=== PATIENT | female | born 1930 | race Native Hawaiian/Other Pacific Islander ===

== ENCOUNTER 2016-09-02 09:24 | Inpatient (IN) | payer OTHER ==
[~2016-09-02 09:24] MED LIST: ALUMSUS6 PO; ASCO500T18 PO; CEPH500C20 PO; DOCU100C10 PO; ENOX40IN SC; GRALISE600 MG PO; MEGESTROL AC40 MG PO; MELOXICAM7.5 MG PO; METO25TA4 PO; MULTIVITAMI1 PO; OXYB5TAB56 PO; OXYC5TAB53 PO; POTA20TA4 PO; PRED20TA27 PO; ROBITUSSIN15 MG/5 ML PO; TRIA75TA61 PO; TYLENOL325 MG PO; ZINC220 MG PO
== END 2016-10-03 08:00 | disposition still patient (30) ==
LOC: PAVB 09:24
PROVIDERS: ADMIT Internal Medicine
DX: Z51.89 Encounter for other specified aftercare (principal)

== ENCOUNTER 2016-10-03 09:00 | Inpatient (IN) | payer OTHER | END 2016-11-03 10:14 | disposition still patient (30) | LOC: PAVB 09:00 | PROVIDERS: ADMIT Internal Medicine | DX: Z51.89 Encounter for other specified aftercare (principal) ==

== ENCOUNTER 2016-11-03 10:35 | Inpatient (IN) | payer OTHER | END 2016-12-01 09:39 | disposition still patient (30) | LOC: PAVB 10:35 | PROVIDERS: ADMIT Internal Medicine | DX: Z51.89 Encounter for other specified aftercare (principal) ==

== ENCOUNTER 2016-11-04 08:44 | Outpatient (CLI) | payer OTHER | END 2016-11-04 22:03 | disposition home or self-care (01) | LOC: US 08:44 | DX: G89.4 Chronic pain syndrome (principal); C56.9 Malignant neoplasm of unspecified ovary ==

== ENCOUNTER 2016-11-05 06:42 | Outpatient (CLI) | payer OTHER ==
[2016-11-05 07:01] LABS: POTASSIUM 4.2 mmol/L (3.6-5.2)
== END 2016-11-05 07:42 | disposition home or self-care (01) ==
LOC: LAB 06:42
PROVIDERS: Internal Medicine
DX: R82.99 Other abnormal findings in urine (principal)
CPT/HCPCS: 36415; 80048

== ENCOUNTER 2016-11-09 07:20 | Outpatient (CLI) | payer OTHER | END 2016-11-09 20:09 | disposition home or self-care (01) | LOC: CT 07:20 | DX: N28.1 Cyst of kidney, acquired (principal) ==

== ENCOUNTER 2016-11-10 15:43 | Outpatient (CLI) | payer OTHER | END 2016-11-10 19:12 | disposition home or self-care (01) | LOC: LAB 15:43 | DX: R82.99 Other abnormal findings in urine (principal) | CPT/HCPCS: 87070; 87077; 87086; 87088; 87186 ==

== ENCOUNTER 2016-12-01 10:24 | Inpatient (IN) | payer OTHER | END 2017-01-01 08:06 | disposition still patient (30) | LOC: PAVB 10:24 | PROVIDERS: ADMIT Internal Medicine | DX: Z51.89 Encounter for other specified aftercare (principal) ==

== ENCOUNTER 2017-01-01 09:21 | Inpatient (IN) | payer OTHER | END 2017-01-31 09:09 | disposition still patient (30) | LOC: PAVB 09:21 | PROVIDERS: ADMIT Internal Medicine | DX: Z51.89 Encounter for other specified aftercare (principal) ==

== ENCOUNTER 2017-01-03 22:07 | Outpatient (CLI) | payer OTHER | END 2017-01-03 23:07 | disposition home or self-care (01) | LOC: LAB 22:07 | DX: N39.0 Urinary tract infection, site not specified (principal) | CPT/HCPCS: 81000; 87077; 87086; 87088; 87186 ==

== ENCOUNTER 2017-01-18 04:56 | Outpatient (CLI) | payer OTHER | END 2017-01-18 19:09 | disposition home or self-care (01) | LOC: LAB 04:56 | DX: N39.0 Urinary tract infection, site not specified (principal); Z16.24 Resistance to multiple antibiotics | CPT/HCPCS: 81000; 87077; 87081; 87086; 87088; 87186 ==

== ENCOUNTER 2017-01-31 09:47 | Inpatient (IN) | payer OTHER | END 2017-03-03 09:31 | disposition still patient (30) | LOC: PAVB 09:47 | PROVIDERS: ADMIT Internal Medicine | DX: Z51.89 Encounter for other specified aftercare (principal) ==

== ENCOUNTER 2017-02-02 09:19 | Outpatient (CLI) | payer OTHER ==
[2017-02-02 10:28] LABS: PLATELET COUNT 182 K/uL (152-353)
[2017-02-02 10:39] LABS: POTASSIUM 4.7 mmol/L (3.6-5.2)
== END 2017-02-02 19:11 | disposition home or self-care (01) ==
LOC: LAB 09:19
PROVIDERS: Internal Medicine
DX: I10 Essential (primary) hypertension (principal); I48.1 Persistent atrial fibrillation
CPT/HCPCS: 36415; 80053; 83735; 85027

== ENCOUNTER 2017-03-03 09:53 | Inpatient (IN) | payer OTHER | END 2017-04-02 15:20 | disposition still patient (30) | LOC: PAVB 09:53 | PROVIDERS: ADMIT Internal Medicine | DX: Z51.89 Encounter for other specified aftercare (principal) ==

== ENCOUNTER 2017-03-12 10:59 | Outpatient (CLI) | payer OTHER | END 2017-03-12 19:01 | disposition home or self-care (01) | LOC: LAB 10:59 | DX: N39.0 Urinary tract infection, site not specified (principal) | CPT/HCPCS: 81000; 87077; 87086; 87088; 87186 ==

== ENCOUNTER 2017-03-31 23:04 | Outpatient (CLI) | payer OTHER | END 2017-03-31 23:59 | disposition home or self-care (01) | LOC: LAB 23:04 | DX: R41.82 Altered mental status, unspecified (principal) | CPT/HCPCS: 81000; 87077; 87086; 87088; 87186 ==

== ENCOUNTER 2017-04-02 15:35 | Inpatient (IN) | payer OTHER | END 2017-05-03 09:42 | disposition still patient (30) | LOC: PAVB 15:35 | PROVIDERS: ADMIT Internal Medicine | DX: Z51.89 Encounter for other specified aftercare (principal) ==

== ENCOUNTER 2017-05-03 10:11 | Inpatient (IN) | payer OTHER | END 2017-06-03 08:40 | disposition still patient (30) | LOC: PAVB 10:11 | PROVIDERS: ADMIT Internal Medicine | DX: Z51.89 Encounter for other specified aftercare (principal) ==

== ENCOUNTER 2017-06-03 09:04 | Inpatient (IN) | payer OTHER | END 2017-07-03 10:33 | disposition still patient (30) | LOC: PAVB 09:04 | PROVIDERS: ADMIT Internal Medicine | DX: Z51.89 Encounter for other specified aftercare (principal) ==

== ENCOUNTER 2017-06-05 09:55 | Emergency (ER) | payer OTHER ==
[~2017-06-05] VITALS: Ht 162.6 cm; Wt 725.8 kg
[2017-06-05 09:55] VITALS: TEMP 98.8
[2017-06-05 11:14] LABS: POTASSIUM 4.1 mmol/L (3.6-5.2)
[2017-06-05 11:19] LABS: PLATELET COUNT 185 K/uL (152-353)
[2017-06-05 14:00] VITALS: BP 114/50
== END 2017-06-05 14:20 | disposition home or self-care (01) ==
LOC: ED 09:55
DX: R05 Cough (principal); R06.09 Other forms of dyspnea
CPT/HCPCS: 36415; 80053; 81000; 83880; 85027; 93005; 96374; 96375; 99284; J0456

== ENCOUNTER 2017-07-03 10:36 | Inpatient (IN) | payer OTHER | END 2017-08-03 12:56 | disposition still patient (30) | LOC: PAVB 10:36 | PROVIDERS: ADMIT Internal Medicine ==

== ENCOUNTER 2017-08-03 13:35 | Inpatient (IN) | payer OTHER | END 2017-09-02 09:18 | disposition still patient (30) | LOC: PAVB 13:35 | PROVIDERS: ADMIT Internal Medicine ==

== ENCOUNTER 2017-08-08 10:20 | Outpatient (CLI) | payer OTHER ==
[2017-08-08 11:06] LABS: POTASSIUM 4.2 mmol/L (3.6-5.2)
[2017-08-08 11:09] LABS: PLATELET COUNT 195 K/uL (152-353)
== END 2017-08-08 11:20 | disposition home or self-care (01) ==
LOC: LAB 10:20
PROVIDERS: Internal Medicine
DX: I10 Essential (primary) hypertension (principal); I48.1 Persistent atrial fibrillation
CPT/HCPCS: 80053; 83735; 85027

== ENCOUNTER 2017-08-20 02:17 | Outpatient (CLI) | payer OTHER | END 2017-08-20 18:56 | disposition home or self-care (01) | LOC: LAB 02:17 | DX: N39.0 Urinary tract infection, site not specified (principal) | CPT/HCPCS: 81000; 87077; 87086; 87088; 87186 ==

== ENCOUNTER 2017-09-02 09:34 | Inpatient (IN) | payer OTHER | END 2017-10-03 09:29 | disposition still patient (30) | LOC: PAVB 09:34 | PROVIDERS: ADMIT Internal Medicine ==

== ENCOUNTER 2017-09-15 16:16 | Outpatient (CLI) | payer OTHER | END 2017-09-15 17:20 | disposition home or self-care (01) | LOC: LAB 16:16 | DX: R41.82 Altered mental status, unspecified (principal); R82.99 Other abnormal findings in urine | CPT/HCPCS: 81000; 87077; 87086; 87088; 87186 ==

== ENCOUNTER 2017-10-03 09:57 | Inpatient (IN) | payer OTHER | END 2017-11-03 09:48 | disposition still patient (30) | LOC: PAVB 09:57 | PROVIDERS: ADMIT Internal Medicine ==

== ENCOUNTER 2017-10-27 12:34 | Outpatient (CLI) | payer OTHER | END 2017-10-27 13:35 | disposition home or self-care (01) | LOC: RAD 12:34 | DX: R05 Cough (principal); R53.83 Other fatigue ==

== ENCOUNTER 2017-10-28 10:24 | Outpatient (CLI) | payer OTHER | END 2017-10-28 21:51 | disposition home or self-care (01) | LOC: LAB 10:24 | DX: R05 Cough (principal); R50.9 Fever, unspecified | CPT/HCPCS: 87804 ==

== ENCOUNTER 2017-11-03 10:31 | Inpatient (IN) | payer OTHER ==
[2017-11-18] MEDS ORDERED: CULTURELL3 PO (20:55)
[2017-11-18] MEDS ORDERED: DOCU100C10 PO (20:55)
[2017-11-18] MEDS ORDERED: OMEP40CA PO (20:56)
[2017-11-18] MEDS ORDERED: VITAMIN C1 CH1 PO (20:56)
[2017-11-18] MEDS ORDERED: ZANTAC 75 PO (20:57)
[2017-11-18] MEDS ORDERED: BENEPROTEIN6 GM PO (20:58)
[2017-11-18] MEDS ORDERED: CEFTIN250 MG PO (20:59)
== END 2017-12-01 09:18 | disposition still patient (30) ==
LOC: PAVB 10:31
PROVIDERS: ADMIT Internal Medicine
DX: L03.90 Cellulitis, unspecified (principal); R26.9 Unspecified abnormalities of gait and mobility; F41.1 Generalized anxiety disorder; N32.81 Overactive bladder; R13.10 Dysphagia, unspecified; K21.9 Gastro-esophageal reflux disease without esophagitis; M48.00 Spinal stenosis, site unspecified; M81.0 Age-related osteoporosis without current pathological fracture; N18.9 Chronic kidney disease, unspecified

== ENCOUNTER 2017-11-18 16:12 | Outpatient (CLI) | payer OTHER ==
[2017-11-18 19:54] LABS: PLATELET COUNT 206 K/uL (152-353)
[2017-11-18 20:00] LABS: POTASSIUM 5.2 mmol/L (3.6-5.2)
[2017-11-18] MEDS ORDERED: CULTURELL3 PO (20:55)
[2017-11-18] MEDS ORDERED: DOCU100C10 PO (20:55)
[2017-11-18] MEDS ORDERED: OMEP40CA PO (20:56)
[2017-11-18] MEDS ORDERED: VITAMIN C1 CH1 PO (20:56)
[2017-11-18] MEDS ORDERED: ZANTAC 75 PO (20:57)
[2017-11-18] MEDS ORDERED: BENEPROTEIN6 GM PO (20:58)
[2017-11-18] MEDS ORDERED: CEFTIN250 MG PO (20:59)
== END 2017-11-18 20:35 | disposition home or self-care (01) ==
LOC: LAB 16:12
PROVIDERS: Internal Medicine
DX: R41.82 Altered mental status, unspecified (principal)
CPT/HCPCS: 80053; 81000; 85027

== ENCOUNTER 2017-11-18 20:36 | Inpatient (IN) | payer OTHER ==
[~2017-11-18] VITALS: Ht 162.6 cm; Wt 65.8 kg
[2017-11-18 20:44] VITALS: BP 115/65; TEMP 98.1
[2017-11-18] MEDS ORDERED: DOCU100C10 PO (20:55)
[2017-11-18] MEDS ORDERED: CULTURELL3 PO (20:55)
[2017-11-18] MEDS ORDERED: OMEP40CA PO (20:56)
[2017-11-18] MEDS ORDERED: VITAMIN C1 CH1 PO (20:56)
[2017-11-18] MEDS ORDERED: ZANTAC 75 PO (20:57)
[2017-11-18] MEDS ORDERED: BENEPROTEIN6 GM PO (20:58)
[2017-11-18] MEDS ORDERED: CEFTIN250 MG PO (20:59)
[2017-11-18 23:25] VITALS: BP 110/46
[2017-11-19] VITALS (7 sets, daily range): BP systolic 93–157; BP diastolic 53–74; TEMP 97.7–98.8; Ht 162.6 cm; Wt 65.8 kg
[2017-11-20 00:19] VITALS: BP 124/62; TEMP 98.2
[2017-11-20 04:49] VITALS: BP 188/88; TEMP 98.3
[2017-11-20 08:00] VITALS: BP 147/78; TEMP 98.2
[2017-11-20 12:00] VITALS: BP 150/74; TEMP 98
[2017-11-20 16:00] VITALS: BP 148/72; TEMP 97.8
[2017-11-20 20:00] VITALS: BP 146/90; TEMP 98.9
[2017-11-21] VITALS: BP 145/66; TEMP 97.9
[2017-11-21 04:00] VITALS: BP 155/69; TEMP 98.8
[2017-11-21 08:00] VITALS: BP 161/73; TEMP 98.5
[2017-11-21 12:00] VITALS: BP 126/85; TEMP 97.4
[2017-11-21 16:00] VITALS: BP 145/60; TEMP 98.2
[2017-11-21 20:00] VITALS: BP 151/76; TEMP 98.3
[2017-11-22] VITALS: BP 149/78; TEMP 98.7
[2017-11-22 04:00] VITALS: BP 154/76; TEMP 98.3
[2017-11-22 08:00] VITALS: BP 161/63; TEMP 98.6
[2017-11-22 12:29] VITALS: BP 165/89; TEMP 97.9
[2017-11-22 16:00] VITALS: BP 155/72; TEMP 97.6
[2017-11-22 20:00] VITALS: BP 164/63; TEMP 98.2
[2017-11-23] VITALS: BP 159/78; TEMP 97.1
[2017-11-23 04:00] VITALS: BP 148/73; TEMP 97.9
[2017-11-23 08:00] VITALS: BP 167/76; TEMP 97.8
[2017-11-23 12:00] VITALS: BP 144/70; TEMP 98
== END 2017-11-23 15:20 | DRG 603 ==
LOC: ED 20:36 → MED/SURG 23:22
PROVIDERS: ADMIT Specialist
DX: L03.221 Cellulitis of neck (principal); K11.3 Abscess of salivary gland; R41.82 Altered mental status, unspecified; K11.8 Other diseases of salivary glands; I10 Essential (primary) hypertension; E03.8 Other specified hypothyroidism
CPT/HCPCS: 80053; 80202; 81000; 84443; 85027; 85651; 87040; 96365; 96366; 96367; 99284; J3370

== ENCOUNTER 2017-12-01 09:49 | Inpatient (IN) | payer OTHER ==
[~2017-12-01 09:49] MED LIST changes: +BENEPROTEIN6 GM PO; +CEFTIN250 MG PO; +CULTURELL3 PO; +OMEP40CA PO; +VITAMIN C1 CH1 PO; +ZANTAC 75 PO
== END 2018-01-01 08:00 | disposition still patient (30) ==
LOC: PAVB 09:49
PROVIDERS: ADMIT Internal Medicine
DX: L03.90 Cellulitis, unspecified (principal); R26.9 Unspecified abnormalities of gait and mobility; R13.10 Dysphagia, unspecified; F41.1 Generalized anxiety disorder; N32.81 Overactive bladder; K21.9 Gastro-esophageal reflux disease without esophagitis; M48.00 Spinal stenosis, site unspecified; M81.0 Age-related osteoporosis without current pathological fracture; N18.9 Chronic kidney disease, unspecified

== ENCOUNTER 2018-01-01 09:00 | Inpatient (IN) | payer OTHER | END 2018-01-31 09:03 | disposition still patient (30) | LOC: PAVB 09:00 | PROVIDERS: ADMIT Internal Medicine ==

== ENCOUNTER 2018-01-10 12:59 | Outpatient (CLI) | payer OTHER | END 2018-01-10 21:58 | disposition home or self-care (01) | LOC: US 12:59 | DX: M79.605 Pain in left leg (principal); M79.604 Pain in right leg; R60.0 Localized edema ==

== ENCOUNTER 2018-01-31 09:27 | Inpatient (IN) | payer OTHER | END 2018-03-03 08:52 | disposition still patient (30) | LOC: PAVB 09:27 | PROVIDERS: ADMIT Internal Medicine ==

== ENCOUNTER 2018-02-03 16:42 | Outpatient (CLI) | payer OTHER ==
[2018-02-04 14:22] LABS: PLATELET COUNT 276 K/uL (152-353)
== END 2018-02-03 22:17 | disposition home or self-care (01) ==
LOC: LAB 16:42
PROVIDERS: Internal Medicine
DX: I10 Essential (primary) hypertension (principal)
CPT/HCPCS: 36415; 85027

== ENCOUNTER 2018-02-04 15:45 | Outpatient (CLI) | payer OTHER ==
[2018-02-04 16:15] LABS: POTASSIUM 6.4 mmol/L (3.6-5.2)
== END 2018-02-04 19:34 | disposition home or self-care (01) ==
LOC: LAB 15:45
PROVIDERS: Internal Medicine
DX: I10 Essential (primary) hypertension (principal)
CPT/HCPCS: 36415; 80053; 83735

== ENCOUNTER 2018-02-06 04:27 | Outpatient (CLI) | payer OTHER | END 2018-02-06 18:50 | disposition home or self-care (01) | LOC: LABW 04:27 | DX: R79.89 Other specified abnormal findings of blood chemistry (principal) | CPT/HCPCS: 36415; 84132 ==

== ENCOUNTER 2018-02-06 15:16 | Outpatient (CLI) | payer OTHER | END 2018-02-06 22:32 | disposition home or self-care (01) | LOC: LAB 15:16 | DX: R74.8 Abnormal levels of other serum enzymes (principal); R82.99 Other abnormal findings in urine | CPT/HCPCS: 81000; 87077; 87086; 87088; 87186 ==

== ENCOUNTER 2018-03-03 09:11 | Inpatient (IN) | payer OTHER | END 2018-04-02 14:18 | disposition still patient (30) | LOC: PAVB 09:11 | PROVIDERS: ADMIT Internal Medicine ==

== ENCOUNTER 2018-03-09 05:59 | Outpatient (CLI) | payer OTHER ==
[2018-03-09 07:57] LABS: POTASSIUM 4.3 mmol/L (3.6-5.2)
== END 2018-03-09 20:10 | disposition home or self-care (01) ==
LOC: LAB 05:59
PROVIDERS: Internal Medicine
DX: Z51.81 Encounter for therapeutic drug level monitoring (principal)
CPT/HCPCS: 36415; 83735; 84132

== ENCOUNTER 2018-03-31 16:39 | Outpatient (CLI) | payer OTHER ==
[2018-03-31 16:58] LABS: POTASSIUM 4.6 mmol/L (3.6-5.2)
== END 2018-03-31 19:13 | disposition home or self-care (01) ==
LOC: LAB 16:39
PROVIDERS: Internal Medicine
DX: R55 Syncope and collapse (principal); R79.89 Other specified abnormal findings of blood chemistry
CPT/HCPCS: 80053; 83880

== ENCOUNTER 2018-04-02 14:46 | Inpatient (IN) | payer OTHER | END 2018-05-03 08:00 | disposition still patient (30) | LOC: PAVB 14:46 | PROVIDERS: ADMIT Internal Medicine ==

== ENCOUNTER 2018-05-03 09:00 | Inpatient (IN) | payer OTHER | END 2018-06-03 10:17 | disposition still patient (30) | LOC: PAVB 09:00 | PROVIDERS: ADMIT Internal Medicine ==

== ENCOUNTER 2018-06-03 10:54 | Inpatient (IN) | payer OTHER ==
[2018-07-01] MEDS ORDERED: CLARITIN10 M1 PO (23:16)
[2018-07-01] MEDS ORDERED: CULTURELLE ADVA1 CAP PO (23:17)
[2018-07-01] MEDS ORDERED: NAPROSYN500 MG PO (23:20)
[2018-07-01] MEDS ORDERED: TRIA75TA61 PO (23:21)
[2018-07-01] MEDS ORDERED: CIPRO500 MG PO (23:24)
== END 2018-07-02 10:30 | disposition expired ==
LOC: PAVB 10:54
PROVIDERS: ADMIT Internal Medicine

== ENCOUNTER 2018-06-24 15:58 | Outpatient (CLI) | payer OTHER | END 2018-06-24 19:56 | disposition home or self-care (01) | LOC: LAB 15:58 | DX: S40.912A Unspecified superficial injury of left shoulder, initial encounter (principal); W19.XXXA Unspecified fall, initial encounter; Y93.89 Activity, other specified; Y92.89 Other specified places as the place of occurrence of the external cause; S80.911A Unspecified superficial injury of right knee, initial encounter; R82.99 Other abnormal findings in urine | CPT/HCPCS: 81000; 87077; 87086; 87088; 87186 ==

== ENCOUNTER 2018-07-01 10:19 | Inpatient (IN) | payer OTHER ==
[~2018-07-01] VITALS: Ht 162.6 cm; Wt 65.0 kg
[2018-07-01] VITALS (7 sets, daily range): BP systolic 86–140; BP diastolic 38–100; TEMP 97.2–98.9; Ht 162.6 cm; Wt 65.0 kg
[2018-07-01 11:50] LABS: PLATELET COUNT 183 K/uL (152-353)
[2018-07-01 11:57] LABS: POTASSIUM 5.3 mmol/L (3.6-5.2); SODIUM 137 mmol/L (136-145)
[2018-07-01 12:03] LABS: PARTIAL THROMBOPLASTIN TIME 31.2 SECONDS (24.5-33.6)
[2018-07-01] MEDS ORDERED: CLARITIN10 M1 PO (23:16)
[2018-07-01] MEDS ORDERED: CULTURELLE ADVA1 CAP PO (23:17)
[2018-07-01] MEDS ORDERED: NAPROSYN500 MG PO (23:20)
[2018-07-01] MEDS ORDERED: TRIA75TA61 PO (23:21)
[2018-07-01] MEDS ORDERED: CIPRO500 MG PO (23:24)
[2018-07-02 00:18] VITALS: BP 100/51; TEMP 99.3
[2018-07-02 04:07] VITALS: BP 86/66; TEMP 98.7
[2018-07-02 08:00] VITALS: TEMP 98.4
[2018-07-02 09:38] VITALS: BP 131/94; TEMP 98.7
[2018-07-02 09:55] VITALS: BP 126/84
== END 2018-07-02 13:24 | disposition expired | DRG 871 ==
LOC: ED 10:19 → MED/SURG 16:50 → ICU 07-02 09:52
PROVIDERS: Family Medicine; ADMIT Internal Medicine
DX: A41.51 Sepsis due to Escherichia coli [E. coli] (principal); J96.01 Acute respiratory failure with hypoxia; N39.0 Urinary tract infection, site not specified; I48.91 Unspecified atrial fibrillation; R41.82 Altered mental status, unspecified; I95.89 Other hypotension; G30.8 Other Alzheimer's disease; F02.80 Dementia in other diseases classified elsewhere, unspecified severity, without behavioral disturbance, psychotic disturbance, mood disturbance, and anxiety; E03.8 Other specified hypothyroidism; I10 Essential (primary) hypertension
CPT/HCPCS: 36415; 36600; 51702; 80053; 81000; 82805; 83605; 84484; 85007; 85027; 85610; 85730; 87040; 87077; 87086; 87088; 87186; 92950; 93005; 94760; 96361; 96365; 99284; J0171; J1956; J2185; J3490